=== PATIENT | female | born 1990 | race Caucasian/White ===

== ENCOUNTER 2024-12-13 09:15 | Emergency (ER) | payer MEDICAID ==
[~2024-12-13] VITALS: Ht 157.5 cm; Wt 70.0 kg
[2024-12-13 09:19] VITALS: O2SAT 99
[2024-12-13] MEDS: KETOROLAC 30MG/ML VIAL IM SCH (10:30)
[2024-12-13 10:51] LABS: CLARITY URINE CLEAR (CLEAR); COLOR URINE YELLOW (YELLOW); GLUCOSE URINE NEGATIVE (NEGATIVE); KETONES URINE NEGATIVE (NEGATIVE); LEUKOCYTE ESTERASE URINE 2+ (NEGATIVE); NITRITE URINE NEGATIVE (NEGATIVE); OCCULT BLOOD URINE 2+ (NEGATIVE); PH URINE 6.5 (4.5-8.0); PROTEIN URINE TRACE (NEGATIVE); UROBILINOGEN URINE 0.2 E.U./dL (0.2-1.0)
[2024-12-13 11:11] LABS: MUCUS URINE 1+ /lpf (< = 2+); SQUAMOUS EPITHELIAL CELL URINE 1+ /lpf (RARE/1+); WBC URINE TNTC /hpf (0-2)
[2024-12-13 11:14] LABS: BACTERIA URINE 3+
[2024-12-13] MEDS ORDERED: NITR100C MT (13:13)
[2024-12-13] MEDS ORDERED: IBUP-2029 MT (13:13)
[2024-12-13 13:21] VITALS: BP 130/86; PULSE 98; RESP 12; TEMP 37; O2SAT 99
== END 2024-12-13 13:20 | disposition home or self-care (01) ==
LOC: ER 09:36
DX: N39.0 Urinary tract infection, site not specified (principal); R51.9 Headache, unspecified; Z98.890 Other specified postprocedural states
CPT/HCPCS: 99283; 81003; 81025; 87086; 87186; 87077; 96372; J1885